=== PATIENT | female | born 1995 ===

== ENCOUNTER 2021-03-24 15:03 | Emergency (ER) | payer MEDICAID ==
[~2021-03-24] VITALS: Ht 160 cm; Wt 86.2 kg
[2021-03-24 15:57] VITALS: BP 123/79
== END 2021-03-24 17:10 | disposition home or self-care (01) ==
LOC: ER 15:03
DX: O44.42 Low lying placenta NOS or without hemorrhage, second trimester (principal); S40.211A Abrasion of right shoulder, initial encounter; S50.811A Abrasion of right forearm, initial encounter; Z3A.14 14 weeks gestation of pregnancy; W18.09XA Striking against other object with subsequent fall, initial encounter; Y93.89 Activity, other specified; Y92.89 Other specified places as the place of occurrence of the external cause; Y99.8 Other external cause status
CPT/HCPCS: 76805